=== PATIENT | male | born 1970 | race Hispanic/Latino ===

== ENCOUNTER 2018-03-12 10:36 | Emergency (ER) | payer OTHER ==
[2018-03-12] MEDS ORDERED: SODIUM CHLORIDE 0.9% 1000ML 0 ML IV ONE (10:59)
[2018-03-12] MEDS ORDERED: DEXAMETHASONE SOD PHOSPHATE 10MG/ML 1ML VIAL ONE ×2 (10:59→11:02)
[2018-03-12] MEDS ORDERED: CEFTRIAXONE SODIUM 1 GM ONE ×2 (10:59→11:02)
[2018-03-12] MEDS ORDERED: SODIUM CHLORIDE 0.9% 1000ML 1,000 ML IV ONE (11:02)
== END 2018-03-12 14:07 | disposition home or self-care (01) ==
LOC: EDH 10:36
DX: J20.9 Acute bronchitis, unspecified (principal); E11.9 Type 2 diabetes mellitus without complications; Z72.0 Tobacco use
CPT/HCPCS: 71046; 87804 ×2; 93005; 96374; 96375; 99284; J0696; J1100; J7030